=== PATIENT | male | born 2000 | race Hispanic/Latino ===

== ENCOUNTER → 2023-08-08 10:55 | Outpatient (REF) | payer OTHER, SELFPAY ==
[2023-08-08 13:20] LABS: Glycohemoglobin (HgbA1c) 5.8 % (4.0-5.6)
== END ==
LOC: CLINIC 10:55
PROVIDERS: ATTENDING PHYSICIAN Nurse Practitioner Adult Health
DX: R73.03 Prediabetes (principal)
CPT/HCPCS: 36415; 83036

== ENCOUNTER → 2023-12-05 06:43 | Outpatient (REF) | payer OTHER, SELFPAY ==
[2023-12-05 11:12] LABS: Glycohemoglobin (HgbA1c) 5.4 % (4.0-5.6)
== END ==
LOC: REG 06:43
PROVIDERS: ATTENDING PHYSICIAN Nurse Practitioner Adult Health
DX: R73.03 Prediabetes (principal)
CPT/HCPCS: 36415; 83036

== ENCOUNTER → 2024-06-07 11:19 | Outpatient (REF) | payer OTHER, SELFPAY ==
[2024-06-07 14:05] LABS: Glycohemoglobin (HgbA1c) 5.6 % (4.0-5.6)
== END ==
LOC: CLINIC 11:19
PROVIDERS: ATTENDING PHYSICIAN Nurse Practitioner Adult Health
DX: R73.03 Prediabetes (principal)
CPT/HCPCS: 36415; 83036